=== PATIENT | male | born 1995 | race Caucasian/White ===

== ENCOUNTER 2021-02-11 20:15 | Emergency (ER) | payer BC, OTHER ==
[~2021-02-11] VITALS: Ht 180.3 cm; Wt 95.2 kg
[2021-02-11] MEDS ORDERED: ONDANSETRON 4 MG/2 ML (SDV) Z0FRAN IVP STA (20:22)
[2021-02-11] MEDS ORDERED: fentaNYL INJ 100 MCG/2 ML AMP IVP STA ×2 (20:22→21:04)
[2021-02-11] MEDS ORDERED: NS IV 1000 ML 1,000 ML IV STA (20:22)
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
[2021-02-11 20:36] LABS: BASOPHILS # (AUTO) 0.1 10^3/uL (0.0-0.1); BASOPHILS % (AUTO) 0 % (0-10); EOSINOPHILS # (AUTO) 0.3 10^3/uL (0.0-0.3); EOSINOPHILS % (AUTO) 2 % (0-10); HEMATOCRIT 47 % (40-54); LYMPHOCYTES # (AUTO) 6.9 X 10^3 (1.0-4.0); LYMPHOCYTES % (AUTO) 42 % (12-44); MEAN CORPUSCULAR HEMOGLOBIN 31 pg (25-34); MEAN CORPUSCULAR HGB CONC 34 g/dL (32-36); MEAN CORPUSCULAR VOLUME 89 fL (80-99); MEAN PLATELET VOLUME 11.1 fL (9.0-12.2); MONOCYTES # (AUTO) 1.5 X 10^3 (0.0-1.0); MONOCYTES % (AUTO) 9 % (0-12); NEUTROPHILS # (AUTO) 7.5 X 10^3 (1.8-7.8); NEUTROPHILS % (AUTO) 46 % (42-75); PLATELET COUNT 196 10^3/uL (130-400); WHITE BLOOD COUNT 16.3 10^3/uL (4.3-11.0)
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
[2021-02-11 20:54] LABS: ALANINE AMINOTRANSFERASE 17 U/L (0-55); ALBUMIN 4.8 GM/DL (3.2-4.5); ALKALINE PHOSPHATASE 99 U/L (40-136); BILIRUBIN,TOTAL 0.5 MG/DL (0.1-1.0); BUN/CREATININE RATIO 11; CALCIUM 9.3 MG/DL (8.5-10.1); CARBON DIOXIDE 26 MMOL/L (21-32); CHLORIDE 103 MMOL/L (98-107); CREATININE SERUM 1.23 MG/DL (0.60-1.30); GFR ESTIMATED 72; GLUCOSE 82 MG/DL (70-105); POTASSIUM 3.2 MMOL/L (3.6-5.0); SODIUM 143 MMOL/L (135-145); TOTAL PROTEIN 7.5 GM/DL (6.4-8.2)
[2021-02-11 20:59] LABS: EOSINOPHILS % (MANUAL) 1 %; LYMPHOCYTES % (MANUAL) 48 %; MONOCYTES % (MANUAL) 10 %; NEUTROPHILS % (MANUAL) 41 %
[2021-02-11] MEDS ORDERED: ceFAZolin INJECTION 1,000 MG in WATER (STERILE) FOR INJECTION 10 ML IV STA (21:04)
[2021-02-11] MEDS ORDERED: KETOROLAC 30 MG/ML VIAL IVP STA (21:04)
[2021-02-11] MEDS ORDERED: LIDOCAINE 1% INJ 20 ML 20 ML VIAL INJ STA (21:04)
[2021-02-11] MEDS ORDERED: TETANUS,DIPTH,PERTUSS P/F (BOOSTRIX) 0.5 ML VIAL IM ONE (21:15)
--- NOTE | 2021-02-11 21:24 | Diagnostic Imaging Report ---
INDICATION: Earlier radiograph showed equivocal abnormalities at the femoral condyle. FINDINGS: A three view right knee shows foreign bodies in the soft tissues medially about the lower thigh but no evidence for fracture. IMPRESSION: No evidence of fracture with repeat three view knee, in particular, the femoral condyles anteriorly appeared intact. Dictated by: Dictated on workstation # [id number]
[2021-02-11] MEDS ORDERED: IBUP-1780 PO (21:47)
[2021-02-11] MEDS ORDERED: CEPH500C PO (21:47)
[2021-02-11] MEDS ORDERED: ACHD5005 PO (21:47)
[2021-02-11 22:10] VITALS: BP 138/67
== END 2021-02-11 22:10 | disposition home or self-care (01) ==
LOC: ER FS 20:17
DX: S71.132A Puncture wound without foreign body, left thigh, initial encounter (principal); Z72.0 Tobacco use; Z23 Encounter for immunization; W34.00XA Accidental discharge from unspecified firearms or gun, initial encounter
CPT/HCPCS: 36415; 73560; 73562; 80053; 85007; 85027; 99284; G0480; 80320; 90715

== ENCOUNTER 2022-01-18 08:23 | Emergency (ER) | payer OTHER ==
[~2022-01-18 08:23] MED LIST: ACHD5005 PO; CEPH500C PO; IBUP-1780 PO
--- NOTE | 2022-01-18 08:56 | ED Upper Extremity ---
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 Tetanus is up to date. No other symptoms or complaints. Onset: just prior to arrival Severity: mild Pain/Injury Location: left thumb Method of Injury: other Modifying Factors: Improves With Other Allergies and Home Medications Allergies Coded Allergies: No Known Drug Allergies (Unverified , 02/11/21) Patient Home Medication List Home Medication List Reviewed: Yes Cephalexin (Cephalexin) 500 Mg Capsule, 500 MG PO QID Prescribed by: DANII KRAMER on 02/11/212146 Hydrocodone/Acetaminophen (Hydrocodone-Acetamin 5-325 mg) 1 Each Tablet, 1 TAB PO Q4H PRN for PAIN-SEVERE (8-10) Prescribed by: DANII KRAMER on 02/11/212148 Ibuprofen (Ibuprofen) 800 Mg Tablet, 800 MG PO Q8H PRN for PAIN Prescribed by: DANII KRAMER on 02/11/212146 Review of Systems Constitutional: see HPI Musculoskeletal: see HPI Past Aczfdhg-Rsqyob-Aiaror Hx Patient Social History Tobacco Use?: No Use of E-Cig and/or Vaping dev: Yes E-Cig or Vaping type used: Nicotine Use of E-Cig and/or Vaping Toan: Current Everyday User Substance use?: No Substance frequency: Daily Alcohol Use?: No Pt feels they are or have been: No Physical Exam Vital Signs Vital Signs - First Documented 01/18/22 08:37 Temp 36.5 Pulse 71 Resp 18 B/P (MAP) 140/64 (89) Pulse Ox 98 O2 Delivery Room Air Capillary Refill : Less Than 3 Seconds Height, Weight, BMI Height: '" Weight: lbs. oz. kg; 29.00 BMI Method: General Appearance: WD/WN, no apparent distress Hand: Left (thumb lacetation, distal tip, no thumbnail involvement. ) Neurologic/Psychiatric: normal mood/affect, oriented x 3 Procedures/Interventions Wound Location: Upper Extremities (L thumb) Wound's Depth, Shape: flap Wound Explored: clean Betadine Prep?: No Other Closure Supply: Wound Adhesive Sterile Dressing Applied?: No Progress wound adhesive Progress/Results/Core Measures Results/Orders My Orders Orders - MIKO LIU DO Finger(S) (01/18/22 08:54) Vital Signs/I&O 01/18/22 08:37 Temp 36.5 Pulse 71 Resp 18 B/P (MAP) 140/64 (89) Pulse Ox 98 O2 Delivery Room Air Blood Pressure Mean: 89 Departure Communication (Admissions) XR L thumb: no fb material Wound cleansed and closed with wound adhesive. Typical wound care instructions provided. Impression Primary Impression: Laceration of left thumb Disposition: 01 HOME, SELF-CARE Condition: Stable Departure-Patient Inst. Decision time for Depature: 09:13 Referrals: NO,LOCAL PHYSICIAN (PCP/Family) Primary Care Physician Patient Instructions: Laceration Repair With Glue ED Add. Discharge Instructions: Please keep wound clean, dry and covered. Return to the ED if signs of infection. All discharge instructions reviewed with patient and/or family. Voiced understanding. MIKO LIU DO Jan 18, 2022 08:56
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
[2022-01-18 09:16] VITALS: BP 140/64
== END 2022-01-18 09:17 | disposition home or self-care (01) ==
LOC: EDUNIT# 08:23 → ER FS 08:27
DX: S61.012A Laceration without foreign body of left thumb without damage to nail, initial encounter (principal); F17.290 Nicotine dependence, other tobacco product, uncomplicated; Z28.310 Unvaccinated for COVID-19; W26.8XXA Contact with other sharp object(s), not elsewhere classified, initial encounter; Y92.59 Other trade areas as the place of occurrence of the external cause; Y99.0 Civilian activity done for income or pay
CPT/HCPCS: 12001; 73140